=== PATIENT | female | born 1965 | race Caucasian/White ===

== ENCOUNTER 2018-06-05 06:52 | Emergency (ER) | payer BC ==
[2018-06-05] MEDS ORDERED: Ketorolac Tromethamine 30 MG/ML VIAL ONE (07:15)
== END 2018-06-05 07:34 | disposition home or self-care (01) ==
LOC: SCSER 06:52
DX: M62.830 Muscle spasm of back (principal); M54.5 Low back pain; F90.9 Attention-deficit hyperactivity disorder, unspecified type; F17.210 Nicotine dependence, cigarettes, uncomplicated
CPT/HCPCS: 96372; J1885